=== PATIENT | female | born 1980 | race Caucasian/White ===

== ENCOUNTER 2024-08-03 09:15 | Emergency (ER) | payer OTHER, BC ==
[~2024-08-03] VITALS: Ht 162.6 cm; Wt 65.9 kg
[2024-08-03 09:17] VITALS: TEMP 97.5
[2024-08-03] MEDS: naproxen 500mg tablet PO ONE (10:38)
[2024-08-03 11:45] VITALS: BP 127/83; PULSE 59; RESP 16; O2SAT 100
== END 2024-08-03 11:47 | disposition home or self-care (01) ==
LOC: ER 09:16
DX: S46.092A Other injury of muscle(s) and tendon(s) of the rotator cuff of left shoulder, initial encounter (principal); R20.2 Paresthesia of skin; Z88.2 Allergy status to sulfonamides; V89.2XXA Person injured in unspecified motor-vehicle accident, traffic, initial encounter; Y93.89 Activity, other specified; Y92.89 Other specified places as the place of occurrence of the external cause; Y99.8 Other external cause status
CPT/HCPCS: 73030; 99283; A4565

== ENCOUNTER 2024-11-19 14:10 | Emergency (ER) | payer BC, OTHER ==
[~2024-11-19] VITALS: Ht 162.6 cm; Wt 67.8 kg
[2024-11-19 16:35] VITALS: BP 121/79; PULSE 71; RESP 16; TEMP 98.8; O2SAT 99
== END 2024-11-19 16:37 | disposition home or self-care (01) ==
LOC: ER 14:11
DX: O26.891 Other specified pregnancy related conditions, first trimester (principal); M79.605 Pain in left leg; R10.2 Pelvic and perineal pain; Z88.2 Allergy status to sulfonamides; Z3A.01 Less than 8 weeks gestation of pregnancy
CPT/HCPCS: 36415; 76801; 84702; 99284